=== PATIENT | female | born 1945 | race African-American/Black ===

== ENCOUNTER → 2023-05-29 | Emergency (ER) | payer OTHER ==
[~2023-05-29] MED LIST: CEFAZOLIN SODIUM 1 GM/VIAL ONE; CLINDAMYCIN 600MG/D5W 50 ML IV ONE; ENOXAPARIN 40 MG/0.4 ML SQ ONE; Levofloxacin500mg IV 500 MG/100 ML BAG IV ONE; NA CHLORIDE 0.9% 1,000 ML ONE; SILVER SULFADIAZINE 1% 25 GM TOP ONE
--- NOTE | 2023-05-29 20:54 | RAD REPORT ---
EXAM DESCRIPTION: Orianat Single View05/29/2023 8:32 pm CLINICAL HISTORY: ABDOMINAL DISTENTION COMPARISON: Chest Single View dated 02/24/2023; Chest Single View dated 02/14/2023 TECHNIQUE: Portable AP view of the chest. FINDINGS: Bibasilar hazy opacities, with suggestion of trace effusions. Calcified right hilar lymph nodes as well as a small right midlung granuloma, stable. No pneumothorax or effusion. The cardiomed iastinal contours are unremarkable. IMPRESSION: Bibasilar hazy opacities and suggestion of trace effusions, findings which may indicate pulmonary edema.
--- NOTE | 2023-05-29 21:03 | RAD REPORT ---
EXAM DESCRIPTION: RAD - Foot Left 3 View - 05/29/2023 8:32 pm CLINICAL HISTORY: PAIN COMPARISON: No comparisons TECHNIQUE: Left foot, 3 views. FINDINGS: Soft tissue irregularity at the plantar surface at the heel. Underlying cortical irregular ity and mild periosteal reaction at the base of a moderate calcaneal spur. Cortical irregularity and deformity at the neck of the fifth digit proximal phalanx. No dislocation. No soft tissue gas. Pronounced dorsal swelling at the mid to forefoot. IMPRESSION: Cortical irregularity and periosteal reaction at the base of the calcaneus near a modera te calcaneal spur, underlying the presumed ulcer. Findings raise concern for ongoing osteomyelitis. M RI would provide improved imaging sensitivity if clinically indicated. Deformity at the neck of the fifth digit proximal phalanx, may relate to acute or chronic sequelae of fracture.
[2023-05-29 21:05] LABS: Absolute Lymphocytes (CBC) 0.9 K/uL (0.7-4.9); Hematocrit 28.4 % (36.0-45.0); MCV 86.8 fL (80-100); MPV 7.3 fL (7.6-11.3); Platelets 284 thou/uL (152-406); RBC Red Blood Cell Count 3.28 M/uL (3.86-4.86)
--- NOTE | 2023-05-29 21:25 | ER ---
Nurse's Notes [facility] Name: Kerry Maier Age: 78 yrs Sex: Female : 1945 Arrival Date: 05/29/2023 Time: 19:35 Bed 20 Private MD: Diagnosis: Acute embolism and thrombosis of unspecified deep veins of right lower extremity;Osteomyelitis, unspecified;GI Bleed/ Gastrointestinal hemorrhage, unspecified;Anemia, unspecified;Abdominal pain, Generalized;Other soft tissue disorders related to use, overuse and pressure, left ankle and foot-infected left heal ulcer with necrosis;Dementia in other diseases classified elsewhere without behavioral disturbance;Pleural effusion, not elsewhere classified-bilateral Presentation: 05/29 19:41 Chief complaint: EMS states: constipation. Patient was recently discharged from [address] for a GI bleed. Patient has gabrielle on the lower abdomen. Coronavirus screen: Vaccine status: Patient reports being unvaccinated. Client denies travel out of the [place] in the last 14 days. At this time, the client does not indicate any symptoms associated with coronavirus-19. Ebola Screen: Patient negative for fever greater than or equal to 101.5 degrees Fahrenheit, and additional compatible Ebola Virus Disease symptoms Patient denies exposure to infectious person. Patient denies travel to an Ebola-affected area in the 21 days before illness onset. No symptoms or risks identified at this time. Initial Sepsis Screen: Does the patient meet any 2 criteria? No. Patient's initial sepsis screen is negative. Does the patient have a suspected source of infection? No. Patient's initial sepsis screen is negative. Risk Assessment: Do you want to hurt yourself or someone else? Patient reports no desire to harm self or others. Onset of symptoms was May 2023. 19:41 Method Of Arrival: [facility] 19:41 Acuity: CARLOS 3 cp4 Triage Assessment: 19:43 General: Appears in no apparent distress. Behavior is calm, cooperative, appropriate cp4 for age. Pain: Denies pain. GI: Bowel sounds present X 4 quads. Abd is soft and non tender X 4 quads. Historical: - Allergies: 19:46 PENICILLINS; cp4 - Immunization history:: Adult Immunizations up to date. - Social history:: Smoking status: unknown. - Family history:: not pertinent. Screenin:44 [facility] ED Fall Risk Assessment (Adult) History of falling in the last 3 months, cp4 including since admission No falls in past 3 months (0 pts) Confusion or Disorientation No (0 pts) Intoxicated or Sedated No (0 pts) Impaired Gait No (0 pts) Mobility Assist Device Used No (0 pt) Altered Elimination No (0 pt) Score/Fall Risk Level 0 - 2 = Low Risk Oriented to surroundings, Maintained a safe environment, Educated pt \T\ family on fall prevention, incl call for assistance when getting out of bed, Assessed \T\ reinforced patient's understanding of fall precautions, Provided non-skid footwear, Hourly rounding (assess needs \T\ fall precautionary measures) done. Abuse screen: Denies threats or abuse. Nutritional screening: No deficits noted. Tuberculosis screening: No symptoms or risk factors identified. Assessment: 19:44 General: Appears in no apparent distress. Behavior is calm, cooperative, appropriate cp4 for age. 22:00 General: Appears in no apparent distress. comfortable, Behavior is calm, cooperative. lg3 Pain: Denies pain. Neuro: Nam Agitation-Sedation Scale (RASS): 0 - Alert and Calm Level of Consciousness is awake, alert, obeys commands, Oriented to person, place. Cardiovascular: No deficits noted. Denies chest pain, shortness of breath, Capillary refill < 3 seconds Clubbing of nail beds is absent JVD is absent Patient's skin is warm and dry. Respiratory: No deficits noted. Airway is patent Respiratory effort is even, unlabored, Respiratory pattern is regular, symmetrical. GI: Abdomen is round non-distended, Reports constipation. : No deficits noted. No signs and/or symptoms were reported regarding the genitourinary system. EENT: No deficits noted. No signs and/or symptoms were reported regarding the EENT system. Derm: Skin is intact, is thin, Skin is dry, Skin is normal, Skin temperature is warm post surgical incision with gabrielle noted to lower abdomen. site clean and dry. Musculoskeletal: No deficits noted. No signs and/or symptoms reported regarding the musculoskeletal system. Circulation, motion, and sensation intact. Range of motion: intact in all extremities. 05/30 00:04 Reassessment: Patient appears in no apparent distress at this time. No changes from lg3 previously documented assessment. Patient and/or family updated on plan of care and expected duration. Pain level reassessed. Patient is alert, oriented x 3, equal unlabored respirations, skin warm/dry/pink. Vital Signs: 05/29 19:41 BP 144 / 65; Pulse 80; Resp 18; Temp 98; Pulse Ox 99% ; cp4 22:00 BP 113 / 83; Pulse 73; Resp 18 S; Pulse Ox 100% on R/A; lg3 22:51 Weight 45.36 kg (R); lg3 05/30 00:05 BP 116 / 79; Pulse 68; Resp 17 S; Pulse Ox 99% on R/A; lg3 ED Course: 05/29 19:38 Patient arrived in ED. cp4 19:41 Marsha Apple is Primary Nurse. cp4 19:43 Triage completed. cp4 19:43 Arm band placed on right wrist. Patient placed in the treatment room, on a stretcher. cp4 19:44 Bed in low position. Call light in reach. Side rails up X2. cp4 19:58 Ed Sage MD is Attending Physician. mariano 20:34 XRAY Chest (1 view) In Process Unspecified. EDMS 20:34 Foot Left 3 View XRAY In Process Unspecified. EDMS 20:50 Initial lab(s) drawn, by me, sent to lab. Inserted saline lock: 22 gauge in right jb4 antecubital area, using aseptic technique. Blood collected. 21:00 Troponin HS Sent. jb4 21:00 PT-INR Sent. jb4 21:00 NT PRO-BNP Sent. jb4 21:00 Magnesium Sent. jb4 21:00 LFT's Sent. jb4 21:00 CBC with Diff Sent. jb4 21:00 Basic Metabolic Panel Sent. jb4 21:20 Dr. Sage initiates Transfer with Martha jovle [facility]. pm6 21:24 CT Abd/Pelvis - Without Contrast In Process Unspecified. EDMS 21:35 US LE Arterial Bilateral In Process Unspecified. EDMS 21:35 US Extremity Venous Unilateral Ltd In Process Unspecified. EDMS 21:[address] Barillas to [facility] RM 1172. pm6 22:00 Report received from JOY Larson. lg3 22:00 Client placed on continuous cardiac and pulse oximetry monitoring. NIBP monitoring lg3 applied. Door closed. Noise minimized. Warm blanket given. Pillow given. 22:00 Patient maintains SpO2 saturation greater than 95% on room air. lg3 22:13 Transfer on hold due to facility not taking report, called transfer center spoke with pm6 Ludmila advised to give nurse 5 minutes then call back for report. 22:20 Inserted saline lock: 22 gauge in left forearm, using aseptic technique. [facility] 23:09 [facility] called 20-25 ETA. pm6 05/30 00:05 No provider procedures requiring assistance completed. Patient transferred, IV remains lg3 in place. intact, No redness/swelling at site. Administered Medications: 05/29 21:40 Drug: ceFAZolin IVPB 1 grams IVPB once Route: IVPB; Site: right forearm; cp4 22:17 Follow up: Response: No adverse reaction; IV Status: Completed infusion; IV Intake: [id number] 21:40 Drug: Clindamycin IVPB 600 mg IVPB once over 30 mins; (mix in 50 mL) Route: IVPB; cp4 Infused Over: 30 mins; Site: right forearm; 22:17 Follow up: IV Status: Completed infusion; IV Intake: 50ml lg3 21:40 Drug: Silver SulfADIAZINE Topical Cream 1 % 1 application Topical once Route: Topical; cp4 Site: affected area; 22:28 Follow up: Response: No adverse reaction lg3 21:41 Drug: NS 0.9% IV 1000 ml IV at 1 bolus Per protocol; 1000 mL bolus Route: IV; Rate: 1 cp4 bolus; Site: right antecubital; 22:22 Drug: levofloxacin IVPB 250 mg 50 ml IVPB once over 60 mins Volume: 50 ml; Route: IVPB; lg3 Infused Over: 60 mins; Site: left forearm; 05/30 00:05 Follow up: Response: No adverse reaction; IV Status: Completed infusion; IV Intake: [id number] 05/29 22:28 CANCELLED (Physician Discretion): grams 45 ml PO once lg3 22:28 CANCELLED (Physician Discretion): dulcolaxsuppository 10 mg IL once lg3 22:57 Drug: Enoxaparin Sub-Q 1 mg/kg Sub-Q once Route: Sub-Q; Site: abdomen; lg3 05/30 00:04 Follow up: Response: No adverse reaction lg3 Medication: 05/29 19:44 VIS not applicable for this client. cp4 Intake: 22:17 IV: 50ml; Total: 50ml. lg3 22:17 IV: 50ml; Total: 100ml. lg3 05/30 00:05 IV: 25ml; Total: 125ml. lg3 Outcome: 05/29 21:25 ER care complete, transfer ordered by . mariano 05/30 00:05 Transferred by ground EMS to [facility], Transfer form lg3 completed. Condition: stable Instructed on the need for transfer, Demonstrated understanding of instructions, 00:06 Patient left the ED. lg3 Signatures: Dispatcher [employer] EDMS Ed Sage MD MD cha Bryson, James RN RN jb4 Irina Belcher RN RN lg3 Marsha Apple 4 Marycarmen Olguin Chantal Roldan pm6 Corrections: (The following items were deleted from the chart) 05/29 19:47 19:43 Allergies: No Known Allergies; cp4 cp4 22:27 22:22 BP 113 / 83; Pulse 73bpm; Resp 18bpm; Spontaneous; Pulse Ox 100% RA; lg3 lg3 22:55 22:51 51.26 kg Reported; lg3 lg3
[2023-05-29 21:26] LABS: ALT/SGPT 11 U/L (13-56); AST/SGOT 18 U/L (15-37); Albumin 1.7 g/dL (3.4-5.0); Alkaline Phosphatase 139 U/L (45-117); BUN Blood Urea Nitrogen 21 mg/dL (7-18); Bicarbonate 32 mEq/L (21-32); Bilirubin Total 0.2 mg/dL (0.2-1.0); Glomerular Filtration Rate 62 ml/min (=/>90); Glucose Level 95 mg/dL (74-106); Magnesium 1.7 mg/dL (1.6-2.4); NT PRO-BNP 3431 pg/mL (<450); Protein, Total 5.5 g/dL (6.4-8.2); Protime INR 1.01; Sodium Level 140 mEq/L (136-145); Troponin High Sensitivity 41.1 pg/mL (<58.9)
--- NOTE | 2023-05-29 21:26 | EDPHYS ---
Physician Documentation [facility] Name: Kerry Maier Age: 78 yrs Sex: Female : 1945 Arrival Date: 05/29/2023 Time: 19:35 Bed 20 Private MD: ED Physician Ed Sage HPI: 05/29 20:18 This 78 yrs old Unknown Female presents to ER via EMS with complaints of Constipation. mariano 20:18 The patient presents with abdominal pain in the upper abdomen, in the lower abdomen. mariano Onset: The symptoms/episode began/occurred 2 day(s) ago. The patient presents with pain, swelling, tenderness. The complaints affect the left foot, left foot. Context: resulted from pressure, Mechanism of Injury: pressure. Onset: The symptoms/episode began/occurred 2 day(s) ago. Modifying factors: The symptoms are alleviated by nothing. Associated signs and symptoms: The patient has no apparent associated signs or symptoms. Associated signs and symptoms: none. The symptoms are described as achy. Severity of pain: At its worst the pain was mild in the emergency department the pain is unchanged. Severity of symptoms: At their worst the symptoms were very mild. It is unknown whether or not the patient has had similar symptoms in the past. Historical: - Allergies: 19:46 PENICILLINS; cp4 - Immunization history:: Adult Immunizations up to date. - Social history:: Smoking status: unknown. - Family history:: not pertinent. ROS: 20:18 Constitutional: Negative for fever, chills, and weight loss, Eyes: Negative for injury, mariano pain, redness, and discharge, ENT: Negative for injury, pain, and discharge, Neck: Negative for injury, pain, and swelling, Cardiovascular: Negative for chest pain, palpitations, and edema, Respiratory: Negative for shortness of breath, cough, wheezing, and pleuritic chest pain, Back: Negative for injury and pain, : Negative for injury, bleeding, discharge, and swelling, Skin: Negative for injury, rash, and discoloration, Neuro: Negative for headache, weakness, numbness, tingling, and seizure, Psych: Negative for depression, anxiety, suicide ideation, homicidal ideation, and hallucinations, Allergy/Immunology: Negative for hives, rash, and allergies, Endocrine: Negative for neck swelling, polydipsia, polyuria, polyphagia, and marked weight changes, Hematologic/Lymphatic: Negative for swollen nodes, abnormal bleeding, and unusual bruising, 20:18 Abdomen/GI: Positive for abdominal pain, constipation, 20:18 MS/extremity: Positive for erythema, pain, swelling, tenderness, of the heel of left foot, Exam: 20:18 Constitutional: This is a well developed, well nourished patient who is awake, alert, mariano and in no acute distress. Head/Face: Normocephalic, atraumatic. Eyes: Pupils equal round and reactive to light, extra-ocular motions intact. Lids and lashes normal. Conjunctiva and sclera are non-icteric and not injected. Cornea within normal limits. Periorbital areas with no swelling, redness, or edema. ENT: Nares patent. No nasal discharge, no septal abnormalities noted. Tympanic membranes are normal and external auditory canals are clear. Oropharynx with no redness, swelling, or masses, exudates, or evidence of obstruction, uvula midline. Mucous membranes moist. Neck: Trachea midline, no thyromegaly or masses palpated, and no cervical lymphadenopathy. Supple, full range of motion without nuchal rigidity, or vertebral point tenderness. No Meningismus. Chest/axilla: Normal chest wall appearance and motion. Nontender with no deformity. No lesions are appreciated. Cardiovascular: Regular rate and rhythm with a normal S1 and S2. No gallops, murmurs, or rubs. Normal PMI, no JVD. No pulse deficits. Respiratory: Lungs have equal breath sounds bilaterally, clear to auscultation and percussion. No rales, rhonchi or wheezes noted. No increased work of breathing, no retractions or nasal flaring. Back: No spinal tenderness. No costovertebral tenderness. Full range of motion. Female : Normal external genitalia. Skin: Warm, dry with normal turgor. Normal color with no rashes, no lesions, and no evidence of cellulitis. Neuro: Awake and alert, GCS 15, oriented to person, place, time, and situation. Cranial nerves II-XII grossly intact. Motor strength 5/5 in all extremities. Sensory grossly intact. Cerebellar exam normal. Normal gait. Psych: Awake, alert, with orientation to person, place and time. Behavior, mood, and affect are within normal limits. 20:18 ECG was reviewed by the Attending Physician. 20:18 Abdomen/GI: Inspection: abdomen appears normal, Bowel sounds: normal, Palpation: soft, nontender, in all quadrants, Liver: no appreciated palpable abnormalities, Hernia: not appreciated, post op, wound looks great, 20:18 Musculoskeletal/extremity: ROM: full active range of motion, full passive range of motion, Circulation is intact in all extremities. Sensation intact. Compartment Syndrome exam of affected extremity: is normal. DVT Exam: negative Homans' sign noted on exam, no appreciated bluish discoloration, pain, swelling, tenderness, erythema, increased warmth, that is moderate, of the heel of left foot, Vital Signs: 19:41 BP 144 / 65; Pulse 80; Resp 18; Temp 98; Pulse Ox 99% ; cp4 22:00 BP 113 / 83; Pulse 73; Resp 18 S; Pulse Ox 100% on R/A; lg3 22:51 Weight 45.36 kg (R); lg3 05/30 00:05 BP 116 / 79; Pulse 68; Resp 17 S; Pulse Ox 99% on R/A; lg3 MDM: 05/29 19:58 Patient medically screened. mariano 20:24 Differential diagnosis: bowel obstruction, non-specific abd pain, pancreatitis. Data mariano reviewed: vital signs, nurses notes, lab test result(s), EKG, radiologic studies, plain films. Consideration of Admission/Observation Patient was admitted/placed on observation. Escalation of care including admission/observation considered. I considered the following discharge prescriptions or medication management in the emergency department Medications were administered in the Emergency Department. See MAR. Independent interpretation of the following test(s) in the Emergency Department EKG: See my EKG interpretation above. Test considered but Not performed: Ultrasound no abd usg. Historians other than the Patient: EMS: ems . well informed. Care significantly affected by the following chronic conditions: Diabetes, Hypertension, sp abd lap , with gabrielle. Counseling: I had a detailed discussion with the patient and/or guardian regarding the historical points, exam findings, and any diagnostic results supporting the discharge/admit diagnosis, lab results, radiology results, the need for further work-up and treatment in the hospital. 05/29 20:00 Order name: Basic Metabolic Panel; Complete Time: 21:41 maraino 05/29 20:00 Order name: CBC with Diff; Complete Time: 21:18 mariano 05/29 20:00 Order name: LFT's; Complete Time: 21:41 [facility] 05/29 20:00 Order name: Magnesium; Complete Time: 21:41 [facility] 05/29 20:00 Order name: NT PRO-BNP; Complete Time: 21:41 [facility] 05/29 20:00 Order name: PT-INR; Complete Time: 21:30 [facility] 05/29 20:00 Order name: Troponin HS; Complete Time: 21:41 [facility] 05/29 20:00 Order name: XRAY Chest (1 view); Complete Time: 21:06 [facility] 05/29 20:08 Order name: Foot Left 3 View XRAY; Complete Time: 21:06 [facility] 05/29 20:09 Order name: CT Abd/Pelvis - Without Contrast 05/29 20:09 Order name: US LE Arterial Bilateral 05/29 21:18 Order name: US Extremity Venous Unilateral Ltd 05/29 20:00 Order name: EKG; Complete Time: 20:00 [facility] 05/29 20:00 Order name: Cardiac monitoring; Complete Time: 20:29 [facility] 05/29 20:00 Order name: EKG - Nurse/Tech; Complete Time: 20:51 [facility] 05/29 20:00 Order name: IV Saline Lock; Complete Time: 21:00 [facility] 05/29 20:00 Order name: Labs collected and sent; Complete Time: 21:00 [facility] 05/29 20:00 Order name: O2 Per Protocol; Complete Time: 20:29 [facility] 05/29 20:00 Order name: O2 Sat Monitoring; Complete Time: 20:29 [facility] EC:42 Rate is 70 beats/min. Rhythm is regular. QRS Reddick is Normal. OR interval is normal. QRS mariano interval is normal. QT interval is normal. No Q waves. T waves are Normal. No ST changes noted. Clinical impression: Normal ECG and No evidence of ischemia. Interpreted by me. Reviewed by me. Administered Medications: 21:40 Drug: ceFAZolin IVPB 1 grams IVPB once Route: IVPB; Site: right forearm; cp4 22:17 Follow up: Response: No adverse reaction; IV Status: Completed infusion; IV Intake: [id number] 21:40 Drug: Clindamycin IVPB 600 mg IVPB once over 30 mins; (mix in 50 mL) Route: IVPB; cp4 Infused Over: 30 mins; Site: right forearm; 22:17 Follow up: IV Status: Completed infusion; IV Intake: 50ml lg3 21:40 Drug: Silver SulfADIAZINE Topical Cream 1 % 1 application Topical once Route: Topical; cp4 Site: affected area; 22:28 Follow up: Response: No adverse reaction lg3 21:41 Drug: NS 0.9% IV 1000 ml IV at 1 bolus Per protocol; 1000 mL bolus Route: IV; Rate: 1 cp4 bolus; Site: right antecubital; 22:22 Drug: levofloxacin IVPB 250 mg 50 ml IVPB once over 60 mins Volume: 50 ml; Route: IVPB; lg3 Infused Over: 60 mins; Site: left forearm; 05/30 00:05 Follow up: Response: No adverse reaction; IV Status: Completed infusion; IV Intake: [id number] 05/29 22:28 CANCELLED (Physician Discretion): [id number] grams 45 ml PO once lg3 22:28 CANCELLED (Physician Discretion): dulcolaxsuppository 10 mg OR once lg3 22:57 Drug: Enoxaparin Sub-Q 1 mg/kg Sub-Q once Route: Sub-Q; Site: abdomen; lg3 05/30 00:04 Follow up: Response: No adverse reaction lg3 Disposition Summary: 05/29/23 21:25 Transfer Ordered Notes: Transfer Location: [facility] mariano Reason: Higher level of care mariano Condition: Fair mariano Problem: new mariano Symptoms: have improved mariano Accepting Physician: to [facility](05/30/23 00:06) lg3 Diagnosis - Acute embolism and thrombosis of unspecified deep veins of right lower extremity mariano - Osteomyelitis, unspecified mariano - GI Bleed/ Gastrointestinal hemorrhage, unspecified mariano - Anemia, unspecified mariano - Abdominal pain, Generalized mariano - Other soft tissue disorders related to use, overuse and pressure, left ankle and mariano foot - infected left heal ulcer with necrosis - Dementia in other diseases classified elsewhere without behavioral disturbance mariano - Pleural effusion, not elsewhere classified - bilateral mariano Forms: - Medication Reconciliation Form mariano - SBAR form mariano Signatures: Dispatcher [employer] EDEd He MD MD cha Able, Lacie, RN RN lg3 Marsha Apple cp4 Corrections: (The following items were deleted from the chart) 05/29 19:47 19:43 Allergies: No Known Allergies; cp4 cp4 20:16 20:00 Abdomen Pelvis W Con+CT.RAD.BRZ ordered. EDMS EDMS :44 21:25 to [facility] 22: 20:00 Lactulose PO 30 grams 45 ml PO once ordered. [facility] lg3 :28 20:00 Dulcolax OR Suppository 10 mg OR once ordered. [facility] lg3 22: 20:51 Dulcolax OR Suppository 10 mg OR once ordered. cp4 lg3 22:28 20:51 Lactulose PO 30 grams 45 ml PO once ordered. cp4 lg3 05/30 00:06 05/29 21:44 to [facility] lg3
[2023-05-29 21:39] LABS: Bilirubin Direct < 0.1 mg/dL (0-0.2); Bilirubin Indirect, Calculated ND mg/dL (0.2-0.8)
--- NOTE | 2023-05-29 22:05 | RAD REPORT ---
EXAM DESCRIPTION: CT - Abdomen Pelvis Wo Contrast - 05/29/2023 9:23 pm CLINICAL HISTORY: ABD PAIN COMPARISON: No comparisons TECHNIQUE: Thin cut axial CT imaging of the abdomen and pelvis was performed without IV contrast. Mu ltiplanar reformats were generated and reviewed. All CT scans are performed using dose optimization technique as appropriate and may include automated exposure control or mA/KV adjustment according to patient size. FINDINGS: Moderate layering bilateral pleural effusions. Mild pericardial effusion. The liver, spleen, and pancreas show no suspicious findings. Gallbladder demonstrates layering sludge and small stones. Symmetric renal contour, without suspicious parenchymal findings within limits of noncontrast techniq ue. No evidence of radiopaque calculi or hydroureteronephrosis. No dilated bowel loops. Lkib-[id number]-[id number] free ascites. Small volume free air underneath the right hem idiaphragm and adjacent to the liver capsule. No fluid collections. Mild prominence of small bowel lo ops in the central and lower abdomen, nonspecific. Moderate central mesenteric edema. No hernia, mass or bulky lymphadenopathy. The urinary bladder is without significant finding. No suspicious bony findings. Pronounced body wall edema. Sequelae of median laparotomy. IMPRESSION: Layering pleural effusions, [id number] free ascites, moderate central mesenteric e yara, and body wall edema, findings which may relate to fluid overload. Please correlate clinically. Sequelae of median laparotomy. Small volume free air underneath the right hemidiaphragm, which may re late to recent laparotomy. Mild delayed prominent caliber of small bowel loops in the central and lower abdomen, nonspecific, co uld reflect mild ileus. Layering gallbladder sludge with small stones.
--- NOTE | 2023-05-29 22:12 | RAD REPORT ---
EXAM DESCRIPTION: US - Lower Extremity Arterial Bilat - 05/29/2023 9:33 pm CLINICAL HISTORY: PAIN COMPARISON: No comparisons TECHNIQUE: Bilateral lower extremity arterial Doppler examination was performed with joanna barnes FINDINGS: Triphasic waveforms are seen along the bilateral common femoral and left superficial femor al through popliteal artery. Biphasic waveforms along the right popliteal and posterior tibial arteri es. Monophasic waveforms along the left posterior tibial and bilateral dorsalis pedis arteries. IMPRESSION: At least moderate peripheral vascular disease, worse on the right.
--- NOTE | 2023-05-29 22:22 | RAD REPORT ---
EXAM DESCRIPTION: US - Extremity Venous Uni Ltd - 05/29/2023 9:33 pm CLINICAL HISTORY: Pain COMPARISON: None. TECHNIQUE: Real-time sonographic evaluation of the right lower extremity deep venous system was perf ormed. FINDINGS: Partial compressibility hypoechoic focus at the right common femoral vein bifurcation exte nding into the proximal deep femoral vein. Normal compressibility, flow augmentation, phasic flow and spontaneous flow is identified in the remainder of the right lower extremity deep venous system. IMPRESSION: Partially occlusive thrombus at the right common femoral vein bifurcation extending into the proximal deep femoral vein. The findings were communicated to Ed Sage on 05/29/2023 at 22:19 hours.
[2023-05-30 02:06] VITALS: BP 116/79; TEMP 98; O2SAT 99
--- NOTE | 2023-05-30 12:21 | EKG ---
Test Date: 2023-05-29 Test Time: 20:38:21 Splicer Apprentice: MUKESH MEASUREMENT RESULTS: Intervals: Rate: 70 AK: 166 QRSD: 90 QT: 382 QTc: 412 [place]: P: 74 AK: 166 QRS: 64 T: 82 INTERPRETIVE STATEMENTS: Normal sinus rhythm Normal ECG No previous ECG available for comparison Electronically Signed On 05-30-23 12:19:04 DRYING FRAME OPERATOR by Khari Carrillo
== END ==
LOC: ER 19:35
DX: I82.401 Acute embolism and thrombosis of unspecified deep veins of right lower extremity (principal); K92.2 Gastrointestinal hemorrhage, unspecified; D64.9 Anemia, unspecified; R10.84 Generalized abdominal pain; L89.623 Pressure ulcer of left heel, stage 3; M86.9 Osteomyelitis, unspecified; J90 Pleural effusion, not elsewhere classified; F03.90 Unspecified dementia, unspecified severity, without behavioral disturbance, psychotic disturbance, mood disturbance, and anxiety; Z88.0 Allergy status to penicillin
CPT/HCPCS: 93005; 85025; 80048; 36415; 83735; 85610; 80076; 84484; 83880; 74176; 71045; 73630; 93925; 93971; 96372; 99285; J1650; J7030; J0690